=== PATIENT | female | born 1955 | race Caucasian/White ===

== ENCOUNTER 2020-11-18 23:31 | Observation (INO) | payer SELFPAY ==
--- NOTE | ~2020-11-18 | XR_ITS ---
EXAMINATION: XR chest 2V EXAM DATE: 11/19/2020 11:07 INDICATION: Elevated white blood cell count, pleural effusions. TECHNIQUE: Frontal and lateral projections of the chest obtained and reviewed. There is no prior danielle dy for comparison. FINDINGS: Moderate to large right-sided subpulmonic pleural effusion with adjacent right middle lobe and basilar multi segmental atelectasis. Small left pleural effusion. There is no pneumothorax suspe cted. Cardiomediastinal silhouette is normal. There is aortic arteriosclerosis. The bones are osteope rita. There are bony degenerative changes. IMPRESSION: 1. Moderate to large right pleural effusion with adjacent lobar atelectasis. Can't exclude superimpo sed pneumonia. 2. Small left pleural effusion. Reviewed, dictated and finalized at location B. E MANAGER IMPRESSION: 1. Moderate to large right pleural effusion with adjacent lobar atelectasis. C an't exclude superimposed pneumonia. 2. Small left pleural effusion.
--- NOTE | ~2020-11-18 | US_ITS ---
EXAMINATION: US venous doppler LE EXAM DATE: 11/19/2020 11:07 INDICATION: Bilateral leg edema. TECHNIQUE: Multiple grayscale, color flow and Doppler images of the lower extremity deep venous syste ms bilaterally were obtained and reviewed. There is no prior study for comparison. FINDINGS: Right side: The right common femoral, femoral and profunda veins demonstrate normal color flow, respi ratory variation, augmentation and compressibility. Compressibility, color flow confirmed within the right popliteal, posterior tibial, peroneal, and greater saphenous veins. Left side: The left common femoral, femoral and profunda veins demonstrate normal color flow, respira tory variation, augmentation and compressibility. Compressibility, color flow confirmed within the l eft popliteal, posterior tibial, peroneal, and greater saphenous veins. IMPRESSION: 1. No lower extremity deep venous thrombosis bilaterally. Reviewed, dictated and finalized at location B. O TECHNICIAN
--- NOTE | ~2020-11-18 | CT_ITS ---
EXAMINATION: CT abdomen pelvis w con DATE: 11/19/2020 01:20 INDICATION: Jaundice. Elevated liver function tests. TECHNIQUE: Computed tomography (CT) of the abdomen and pelvis was performed with 100 cc Omnipaque 350 intravenous contrast. Automated exposure control and iterative reconstruction technique were employe d. Exam dose: 294.35 mGy-cm total exam DLP. COMPARISON: None. FINDINGS: There is a large right pleural effusion with prominent compressive atelectasis of the middl e and particularly right lower lobes. There is minimal infiltrate or atelectasis in the left lower lo be and lingula. No pericardial effusion. No left pleural effusion. Diffuse hepatic steatosis. There is hepatomegaly interval nodularity of liver suggesting cirrhosis. Spleen measures up to 11.5 cm length, within upper limits of normal. There is moderate ascites. The gallbladder is present appears unremarkable. No bile duct or pancreatic duct dilatation is eviden t. No pancreatic mass lesion or calcification. Normal morphology of the adrenal glands. No renal mass lesion. No urinary tract calculus or hydroureteronephrosis. Normal caliber of the abdominal aorta; no abdominal aortic aneurysm. No intraperitoneal, retroperiton eal or pelvic mass lesion or adenopathy is noted. There are numerous diverticula of the sigmoid and descending colon; no CT evidence of diverticulitis. No bowel obstruction, bowel wall thickening, pneumatosis or intraperitoneal free air is evident. Left hip prosthesis. Prominent degenerative disease at L4-5 and L5-S1. Diffuse osteopenia. IMPRESSION: Cirrhosis, hepatic steatosis and moderate ascites Diverticulosis of the colon Left hip prosthesis Large right pleural effusion with associated compressive atelectasis of the middle and particularly r ight lower lobes Reviewed, dictated and finalized at [facility]. Reviewed, dictated and finalized at location A. R SCHOOL SPANISH TEACHER IMPRESSION: Cirrhosis, hepatic steatosis and moderate ascites Diverticulosis of the colon Left hip prosthesis Large right pleural effusion with associated compressive atelectasis of the mid dle and particularly right lower lobes
--- NOTE | ~2020-11-18 | US_ITS ---
EXAMINATION: US paracentesis abd w/image DATE: 11/19/2020 14:42 INDICATION: Ascites. TECHNIQUE: The procedure and its risks, benefits, and alternatives were discussed with the patient. P otential risks discussed included bleeding and infection. The skin was prepped and draped in sterile fashion. 1% lidocaine was used for local anesthesia. Under ultrasound guidance, a 5 Fr catheter with trochar was advanced into the ascites in the right lower quadrant. Fluid was aspirated. The catheter was removed, and a dressing was applied. There were no immediate complications. FINDINGS: Ultrasound images demonstrate ascites and the catheter within the fluid. IMPRESSION: 1. Successful ultrasound-guided paracentesis yielding 2000 mL of clear, yellow fluid. Reviewed, dictated and finalized at location A. OR SOFTWARE TESTER
[2020-11-18 23:35] VITALS: BP 136/62; PULSE 126; RESP 20; TEMP 36.6; O2SAT 94
[2020-11-18 23:56] VITALS: PULSE 118; RESP 24; O2SAT 100
--- NOTE | 2020-11-18 23:56 | ED.EXTPRO ---
HPI - Extremity Problem General Chief complaint: Extremity Problem,Nontraumatic Stated complaint: LEG NUMBNESS FOR PAST MONTH Time Seen by Provider: 11/18/20 23:46 Source: patient Mode of arrival: ambulatory Limitations: no limitations History of Present Illness HPI Narrative: A 65-year-old female comes into the emergency department tonight with complaints of pain and swelling in her lower extremities. She also is complaining of numbness. Patient states that her legs have become markedly more swollen than usual. She states that she does have issues with swelling in the past and this is just worse than usual. There is also some erythema noted on her legs. She denies any weeping or leaking of her legs. Related Data Home Medications Medication Instructions Recorded Confirmed No Home Medications 11/18/20 11/18/20 Allergies Allergy/AdvReac Type Severity Reaction Status Date / Time No Known Allergies Allergy Verified 11/18/20 23:59 Review of Systems Review of Systems: Narrative: CONSTITUTIONAL: Denies fever, chills, or sweats. EYES: Denies visual changes, redness, or discharge. ENT: Denies rhinorrhea, congestion, sore throat, or otalgia. CARDIOVASCULAR: Denies chest pain, palpitations, or edema. RESPIRATORY: Denies cough or dyspnea. GASTROINTESTINAL: Denies abdominal pain, nausea, vomiting, or diarrhea. GENITOURINARY: Denies dysuria or hematuria. SKIN: Denies rash or itching. MUSCULOSKELETAL: Denies back pain, joint pain, or myalgia. Endorses swelling and numbness in her bilateral lower extremities NEUROLOGIC: Denies headache, numbness, dizziness, or weakness. PSYCHIATRIC: Denies anxiety or depression. Exam Narrative: Exam Narrative: GENERAL: Well-appearing, well-nourished, and in no acute distress. HEAD: Normocephalic, atraumatic. EYES: PERRLA and EOMI. ENT: Nares clear, no rhinorrhea or epistaxis. Mucous membranes moist. Oropharynx without tonsillar hypertrophy exudate or other lesions. Bilateral TMs pearly umana nonbulging NECK: Supple. No adenopathy or masses. No carotid bruits or JVD CHEST: Clear to auscultation. No respiratory distress. No wheezes rales or rhonchi HEART: Regular rate and rhythm. No murmur heard. Normal peripheral pulses. ABDOMEN: Soft, nontender, nondistended, normal active bowel sounds. EXTREMITIES: Normal range of motion. 4+ pretibial pitting edema. Erythema noted bilaterally on the pretibial areas and feet, it is not warm to touch. SKIN: Warm, dry, no rash. NEURO: No focal deficits. Alert and oriented x3. PSYCH: Normal mood and affect. Course Reevaluation(s) Reevaluation #1: Reevaluated and provided care update to the patient. Informed her that her liver enzymes appeared slightly elevated. I also explained to the patient that she appeared slightly jaundiced. Her echoed that he said something to her last week that she was looking a little yellowed. Patient will be sent to the CT scanner to evaluate her letter. Patient did admit to drinking wine frequently. Lastly I addressed the patient's tachycardia. When she came in she said that she was very nervous and hospitals make her nervous. She was asking something to help with her nerves. Time: 00:59 Reevaluation #2: Had a further discussion with the patient regarding her CT results. Does show that she has got a large pleural effusion on the right as well as scattered ascites likely secondary to the alcoholic hepatitis. After this I initiated a conversation with the patient and she did admit that she drinks 3 to 4 glasses of wine (1 bottle) per day. After further discussion the patient was still short of breath and stated that if she was at rest she stated that she had mild trouble breathing but if she got up and moved she had had a much harder time with breathing. Because of this we will plan for admission with the intent of a thoracentesis and possible paracentesis. This way the patient will also be able to have a GI consult to be evaluat
[2020-11-19] VITALS (18 sets, daily range): BP systolic 92–121; BP diastolic 53–68; PULSE 105–118; RESP 16–31; TEMP 36.3–37.1; O2SAT 91–100; BMI 19.3
--- NOTE | 2020-11-19 | ECHO_ITS ---
Patient Info Name: Bailey Zavala Age: 65 years : 1955 Gender: Female Ht: 66 in Wt: 121 lbs BSA: 1.59 m2 HR: 108 bpm BP: 109 / 60 mmHg Heart Rhythm: Tachycardia Technical Quality: Good Exam Date: 11/19/2020 1:38 PM Exam Location: [facility] Pulmonary Exam Room: [facility] Patient Status: Inpatient Admit Date: 11/19/2020 Staff Ordering Physician: Yariel Rangel MD Bronze Chaser: Brittny Holden RDCS Attending Provider: Suman Loera MD Exam Type: CA echo doppler color flow Study Info Indications - CIRROHISIS LE WEAKNESS PLEURAL EFFUSION Complete two-dimensional, color flow and Doppler transthoracic echocardiogram is performed. Summary 1. Complete two-dimensional, color flow and Doppler transthoracic echocardiogram is performed. 2. Left ventricular systolic function is hyperdynamic, estimated at >70%. 3. There is no increased left ventricular wall thickness. 4. The left ventricular diastolic function is grade I diastolic dysfunction. 5. There is trace tricuspid valve regurgitation. 6. Mild pulmonary hypertension, estimated pulmonary arterial systolic pressure is 38 mmHg. 7. Normal inferior vena cava with <50% collapse upon inspiration consistent with elevated right atrial pressure, 10 mmHg. 8. There is small pericardial effusion. 9. Ascites present. 10. Left pleural effusion. Left Ventricle Left ventricular chamber dimension is normal. Left ventricular systolic function is hyperdynamic, estimated at >70%. There is no increased left ventricular wall thickness. The left ventricular diastolic function is grade I diastolic dysfunction. Right Ventricle Right ventricular chamber dimension is normal. Right ventricular systolic function is normal. Left Atria Left atrial chamber dimension is normal. Right Atria Right atrial chamber dimension is normal. Aortic Valve The aortic valve is trileaflet. There is no aortic valve stenosis. Pulmonic Valve The pulmonic valve is not well visualized. There is trace pulmonic regurgitation. Mitral Valve The mitral valve has normal leaflets. There is trace mitral valve regurgitation. Tricuspid Valve The tricuspid valve leaflets are normal. There is trace tricuspid valve regurgitation. Mild pulmonary hypertension, estimated pulmonary arterial systolic pressure is 38 mmHg. Pericardium/Pleural The pericardium appears normal. There is small pericardial effusion. Ascites present. Left pleural effusion. Inferior Vena Cava Normal inferior vena cava with <50% collapse upon inspiration consistent with elevated right atrial pressure, 10 mmHg. Aorta The aortic root size at the sinus of Valsalva is normal. Left Ventricular Outflow Tract Name Value Normal LVOT 2D LVOT Diameter 2.0 cm LVOT Doppler LVOT Peak Gradient 7 mmHg LVOT Mean Gradient 3 mmHg LVOT VTI 25 cm LVOT VTI/AV VTI Ratio 0.9 LVOT Stroke Volume 74 ml LVOT CO 15.3 l/min LV
[2020-11-19 00:22] LABS: Basophils Absolute Auto 0.1 K/mm3 (0.0-0.1); Basophils Percent Auto 0.6 % (0.2-1.2); Eosinophils Absolute Auto 0.1 K/mm3 (0-0.3); Eosinophils Percent Auto 0.3 % (0-4.4); Hematocrit 26.5 % (37.0-47.0); Hemoglobin 9.3 g/dL (12.0-15.0); Immature Granulocyte Absolute 0.11 K/mm3 (0.00-0.031); Immature Granulocyte Percent A 0.6 % (0-0.5); Lymphocytes Absolute Auto 2.56 K/mm3 (0.9-3.2); Lymphocytes Percent Auto 13.7 % (18.3-44.2); Mean Corpuscular HGB Conc 35.1 g/dl (32-36); Mean Corpuscular Hemoglobin 39.9 pg (26-34); Mean Corpuscular Volume 113.7 fl (80-100); Mean Platelet Volume 8.5 fl (7.4-10.4); Monocytes Absolute Auto 1.2 K/mm3 (0.1-0.6); Monocytes Percent Auto 6.5 % (2.6-8.5); Neutrophils Absolute Auto 14.7 K/mm3 (1.3-6.7); Neutrophils Percent Auto 78.3 % (45.5-73.1); Platelet Count Result 294 k/mm3 (150-375); Red Blood Count 2.33 M/mm3 (4.2-5.4); Red Cell Distribution Width 15.4 % (11.5-14.5); White Blood Count 18.7 K/mm3 (4.5-10.0)
[2020-11-19 00:35] LABS: Alanine Aminotransferase 22 U/L (4-35); Albumin Level 2.8 g/dL (3.5-5.1); Alkaline Phosphatase 164 U/L (38-126); Anion Gap 9 mmol/L (8-16); Aspartate Amino Transferase 95 U/L (14-36); Bilirubin Direct 0.4 mg/dL (0-0.3); Bilirubin,Total 4.7 mg/dL (0.2-1.3); Blood Urea Nitrogen 6 mg/dL (7-17); Carbon Dioxide 24 mmol/L (22-30); Chloride 95 mmol/L (98-107); Estimated CRCL calculation 84 ml/min; Estimated Glomerular Filt Rate > 60; Glucose 86 mg/dL (65-105); Potassium 3.9 mmol/L (3.4-5.0); Sodium 128 mmol/L (137-145)
[2020-11-19] MEDS: LORazepam INJ (*CRX) 2 MG/ML VIAL 0.5 MG IV PUSH (01:05)
--- NOTE | 2020-11-19 04:08 | PC.NURSE ---
This patient, Bailey Zavala, was admitted to 3 [facility] Surg Room 316-01. Patient/family oriented to hospital policies and general routines including ID bracelet, bed and alarms, visiting hours, pain management, procedures, bathroom and other care routines, personal items, smoking policy, room service/diet, and visiting hours. Information on how to activate the Rapid Response Team has been discussed. Patient/Family are encouraged to report perceived risks to care and to ask questions if they do not understand what they are told or what they should do.
--- NOTE | 2020-11-19 08:38 | PM.IMHP ---
H&P: HPI History of Present Illness Date/Time: 11/19/20 08:38 PATIENT PLACED IN OBSERVATION Chief Complaint: leg edema Narrative: Bailey Zavala is a 65 year old healthy female who presents to the emergency department with complaints of pain, numbness and swelling in her bilateral lower extremities. Over the past month and a half, patient has noted increasing pedal edema and increasing abdominal girth. She has had a 10 lb weight loss over the past few months. She has decreased appetite but no dysgeusia or anosmia. She has early satiety. No odynophagia or dysphagia. No nausea, vomiting, diarrhea or constipation. She has developed generalized weakness worse in the lower extremities. Her left leg is weaker than the right since 2017 after left hip fracture repair. Her symptoms worsened yesterday when she had trouble getting off the toilet. At that time she noted redness to her lower extremities. She also complains of crampy pain mostly in her calfs bilaterally as well as numbness from the knees down during this time period. She denies any chest pain or palpitations. She mostly sleeps in bed with 1 pillow flat but over the past month has had episodes where she wakes up ?anxious? and short of breath. She denies any nocturia. No dysuria or hematuria. No orthopnea. No weeping from the legs prior to admission but has noted this since marylin hose placed from ED. No cough, shortness of breath or dyspnea on exertion. No vision changes. No headaches. She has no significant past medical history. Specifically she denies any diabetes, CAD, hyperlipidemia, thyroid disease, seizures, stroke or liver problems. No family history of liver problems. She takes ibuprofen about 8 tablets a month on average but no acetaminophen. No other axyc-tcb-fvslcpe medications. No prescription medications. Alcohol use as detailed below. Because of the increasing weakness patient presented emergency room for evaluation. In the ED, patient was tachycardic with a pulse 126 otherwise was hemodynamically stable. White count is elevated 18,700. She was anemic with a macrocytic anemia. Sodium was low 128 with elevated AST and total bilirubin level. CT of the abdomen pelvis shows cirrhosis, moderate ascites and large right pleural effusion. She was given Ativan x1 and started on cephazolin for unclear reasons (cellulitis?). No cultures or UA obtained. Review of Systems Review of Systems: All systems reviewed & are unremarkable except as noted in HPI and below PMFSH Past Medical History Medical History (Updated 11/21/20 @ 14:59 by Yariel Rangel MD) Hx of fracture of left hip s/p repair with partial replacement Surgical History Surgical History (Updated 11/19/20 @ 09:33 by Yariel Rangel MD) History of total abdominal hysterectomy for fibroids Family History Family History (Updated 11/19/20 @ 04:20 by Debi Levi RN) Father Stented coronary artery Dementia Mother Kidney disease Social History Social History (Updated 11/19/20 @ 09:59 by Yariel Rangel MD) Social History: Patient lives at home her . No pets. Lifelong nonsmoker. No drug use. She is full code. She drinks 4 glasses of wine per day and has done so for at least 10 years (sometimes more at times). Her would be the individual would make medical decisions for her if she is not able. She denies any history of withdrawal symptoms or seizures but admits that she has not stopped drinking for extended period time. Smoking status: Never smoker Alcohol intake: current Drinks per week: 27 Substance use: never Gender identity (if verbalized by the patient): Female Spiritual care concerns: No Meds Home Medications and Allergies Home Medications Medication Instructions Recorded Confirmed Type No Home Medications 11/18/20 11/19/20 History Allergies Allergy/AdvReac Type Severity Reaction Status Date / Time No Known All
--- NOTE | 2020-11-19 09:52 | ECG_ITS ---
Measurements Intervals [place] Rate: 113 P: -24 PA: 88 QRS: 7 QRSD: 72 T: 28 QT: 313 QTc: 430 Interpretive Statements SINUS TACHYCARDIA WITH SHORT PA INTERVAL NONSPECIFIC ST & T-WAVE ABNORMALITY- DIFFUSE LEADS BASELINE ARTIFACT- I, II, AVR, AVL, AVF, V2, V4-V6 ABNORMAL ECG Electronically Signed On 11-19-2020 10:54:04 GREASE WORKER by Marty Manrique D.O.
[2020-11-19 10:43] LABS: Ammonia 30 umol/L (9-30)
[2020-11-19 10:44] LABS: CRP 2.2 mg/dL (<1.0)
--- NOTE | 2020-11-19 10:46 | PCOTNOTE ---
Attempted OT evaluation, pt is off the unit for testing, will attempt at later time.
--- NOTE | 2020-11-19 10:47 | PCPTNOTE ---
Attempted PT evaluation this AM, patient not in room was receiving Doppler study, will attempt at a later time.
[2020-11-19 10:57] LABS: Iron 62 ug/dL (37-170)
[2020-11-19 11:07] LABS: Percent Iron Saturation 51 % (20-50)
[2020-11-19] MEDS: FUROSEMIDE INJ 40 MG/4 ML VIAL 20 MG IV PUSH ×2 (11:23→17:06)
[2020-11-19] MEDS: THIAMINE HCL 200 MG/2 ML VIAL 100 MG IV PUSH (11:23)
[2020-11-19] MEDS: FOLIC ACID 1 MG TABLET PO (11:23)
[2020-11-19 11:54] LABS: Folic Acid 2.1 ng/mL (2.76->20)
--- NOTE | 2020-11-19 12:10 | WPDGICN ---
Assessment and Plan Assessment and plan (1) Alcoholic cirrhosis of liver with ascites: Code(s): K70.31 - Alcoholic cirrhosis of liver with ascites Status: Acute Assessment and Plan: Patient appears to have cirrhosis based on history is well CT scan findings concomitant this with this she has ascites and lower extremity edema. Her numbness may be a attributed to alcohol toxicity. Consider neurology evaluation. Plan is for patient to be on a low-salt diet. Daily weights will be obtained. Diuretics will be implemented slowly. Diagnostic paracentesis will be obtained for laboratory evaluation. And further recommendations subsequently. Patient's jaundice appears mainly to be in conjugated bilirubin period and likely from hepatocellular disease. Hepatitis serologies will be obtained to exclude viral etiology. These are pending. Because of apparent slow mentation ammonia level will be obtained. Prothrombin time also will be obtained to establish underlying function of liver. (2) Macrocytic anemia: Code(s): D53.9 - Nutritional anemia, unspecified Status: Acute (3) Alcoholism: Code(s): F10.20 - Alcohol dependence, uncomplicated Status: Acute Assessment and Plan: Patient appears to have daily alcohol intake attributing for her liver disease. Alcohol avoidance strongly encouraged (4) Pleural effusion on right: Code(s): J90 - Pleural effusion, not elsewhere classified Status: Acute Assessment and Plan: Pleural effusion noted on x-ray examination hopefully will improve with diuresis should this worsen pulmonary evaluation for thoracentesis may need to be considered. (5) Hx of fracture of left hip: Code(s): Z87.81 - Personal history of (healed) traumatic fracture Status: Acute GI Consult Note Consult date/time: 11/19/20 12:10 HPI: Bailey Zavala is a 65 year old female seen in evaluation at the request of the hospitalist service. Patient presented to the emergency room complaining of weakness in the lower extremities and numbness below the knees. She states this is worsened over the last 2-3 months. Upon presenting to the emergency room was found to have significant edema and abdominal swelling. Patient reports that she has had pedal edema for some time but increased swelling over last 2-3 months. Along with this she states her appetite has declined and she has lost perhaps 10 lb patient reports drinking wine perhaps 3-4 glasses of wine a night on a daily basis for many years. She reports past medical history of hip replacement approximately [address] scan performed in the emergency room suggest underlying cirrhosis of the liver and hepatic steatosis. Patient apparently was started on antibiotics for unclear reasons in the emergency room. She was on no other medications at home. Her family history is noncontributory. Patient denies any known exposure to hepatitis. No one else in the family as she is aware of has had hepatitis. Nor cirrhosis. Review of Systems Review of Systems: All systems reviewed & are unremarkable except as noted in HPI and below PMFSH Past Medical History Medical History Hx of fracture of left hip s/p repair with partial replacement Surgical History Surgical History (Updated 11/19/20 @ 09:33 by Yariel Rangel MD) History of total abdominal hysterectomy for fibroids Family History Family History (Updated 11/19/20 @ 04:20 by Debi Levi RN) Father Stented coronary artery Dementia Mother Kidney disease Social History Social History (Updated 11/19/20 @ 09:59 by Yariel Rangel MD) Social History: Patient lives at home her . No pets. Lifelong nonsmoker. No drug use. She is full code. She drinks 4 glasses of wine per day and has done so for at least 10 years (sometimes more at times). Her would be the individual would
[2020-11-19 12:54] LABS: Free T4 Free Thyroxine Reflex 1.46 ng/dL (0.78-2.19)
[2020-11-19 13:09] LABS: Ammonia 23 umol/L (9-30)
[2020-11-19 13:16] LABS: INR 1.5; Prothrombin Time 18.6 Seconds (11.1-14.7)
[2020-11-19 13:19] LABS: Partial Thromboplastin Time 42.2 SECONDS (22.3-36.8)
[2020-11-19 13:50] LABS: Add Urine Microscopic? YES; Appearance Urine Clear (Clear); Bacteria Urine Trace /hpf; Bilirubin Urine Negative (Negative); Blood Urine Negative (Negative); Color Urine Amber (Yellow); Glucose Urine UA Negative (Negative); Ketones Urine Negative (Negative); Leukocyte Esterase Ur Trace LEU/UL (Negative); Mucus Urine Rare /lpf; Nitrate Urine Negative (Negative); Protein Urine Negative (Negative); RBC Urine 0-2 /hpf (0-2); Specific Grav Ur 1.025 (1.001-1.035); Squamous Epithelial Cell Urine Rare /hpf (Few); WBC Urine 0-3 /hpf
[2020-11-19 14:18] LABS: Hepatitis B Surface Antigen Negative (Negative)
[2020-11-19 14:23] LABS: HAV RESULT Negative (Negative); Hepatitis B Core IgM Result Negative (Negative)
[2020-11-19 14:35] LABS: Hepatitis B Surface Anti Res Negative; Hepatitis C Virus Antibody Negative (Negative)
[2020-11-19 19:12] LABS: Appearance Peritoneal Fluid Hazy (Clear); Color Peritoneal Fluid Yellow (Colorless); Lymphocytes Peritoneal Fluid 15 %; Monocytes Peritoneal Fluid 57 %; Neutrophils Peritoneal Fluid 19 % (0-25); Nucleated Cells Peritoneal Flu 376 /uL (0-500); RBC Peritoneal Fluid 0 /uL (0-100000); Source Peritoneal Fluid Peritoneal Fluid
[2020-11-19 19:13] LABS: Eosinophils Peritoneal Fluid 0 %; Macrophages Peritoneal Fluid 1 %; Mesothelial Cells Peritoneal Fluid 8 %
[2020-11-20 06:00] VITALS: BP 100/52; PULSE 104; RESP 20; TEMP 36.7; O2SAT 90
[2020-11-20 06:00] LABS: Basophils Absolute Auto 0.1 K/mm3 (0.0-0.1); Basophils Percent Auto 0.5 % (0.2-1.2); Eosinophils Absolute Auto 0.1 K/mm3 (0-0.3); Eosinophils Percent Auto 0.4 % (0-4.4); Hemoglobin 8.1 g/dL (12.0-15.0); Immature Granulocyte Absolute 0.11 K/mm3 (0.00-0.031); Immature Granulocyte Percent A 0.7 % (0-0.5); Lymphocytes Absolute Auto 2.76 K/mm3 (0.9-3.2); Lymphocytes Percent Auto 18.6 % (18.3-44.2); Mean Corpuscular HGB Conc 35.2 g/dl (32-36); Mean Corpuscular Hemoglobin 39.5 pg (26-34); Mean Corpuscular Volume 112.2 fl (80-100); Mean Platelet Volume 8.5 fl (7.4-10.4); Monocytes Percent Auto 6.7 % (2.6-8.5); Neutrophils Absolute Auto 10.9 K/mm3 (1.3-6.7); Neutrophils Percent Auto 73.1 % (45.5-73.1); Platelet Count Result 224 k/mm3 (150-375); Red Blood Count 2.05 M/mm3 (4.2-5.4); Red Cell Distribution Width 15.2 % (11.5-14.5); White Blood Count 14.9 K/mm3 (4.5-10.0)
[2020-11-20 06:14] LABS: Alanine Aminotransferase 15 U/L (4-35); Albumin Level 2.1 g/dL (3.5-5.1); Alkaline Phosphatase 114 U/L (38-126); Anion Gap 2 mmol/L (8-16); Aspartate Amino Transferase 61 U/L (14-36); Bilirubin Indirect 2.1 mg/dL (0-1.1); Bilirubin,Total 4.2 mg/dL (0.2-1.3); Blood Urea Nitrogen 7 mg/dL (7-17); Calcium 7.4 mg/dL (8.4-10.2); Carbon Dioxide 30 mmol/L (22-30); Chloride 95 mmol/L (98-107); Estimated CRCL calculation 82 ml/min; Estimated Glomerular Filt Rate > 60; Glucose 89 mg/dL (65-105); Magnesium 1.6 mg/dL (1.6-2.3); Phosphorus 3.1 mg/dL (2.5-4.5); Potassium 3.2 mmol/L (3.4-5.0); Sodium 127 mmol/L (137-145)
[2020-11-20] MEDS: ENOXAPARIN 40 MG/0.4 ML SYRINGE SUB-Q (08:25)
[2020-11-20] MEDS: POTASSIUM CHLORIDE 20 MEQ TABLET 40 MEQ PO (08:25)
[2020-11-20] MEDS: THERAPEUTIC MULTIVITAMINS/MINERALS TAB (*BKC) 1 TABLET PO (08:26)
[2020-11-20] MEDS: FOLIC ACID 1 MG/0.2 ML INJ IV PUSH (08:26)
[2020-11-20] MEDS: FUROSEMIDE INJ 40 MG/4 ML VIAL 20 MG IV PUSH ×2 (08:26→16:57)
[2020-11-20] MEDS: THIAMINE HCL 200 MG/2 ML VIAL 100 MG IV PUSH (08:27)
[2020-11-20 10:51] VITALS: O2SAT 93
--- NOTE | 2020-11-20 12:08 | WPDGIPROGNO ---
Progress Note: A&P Assessment and Plan (1) Alcoholism: Code(s): F10.20 - Alcohol dependence, uncomplicated Status: Acute Assessment and Plan: Strict alcohol avoidance and rehabilitation encourage. (2) Macrocytic anemia: Code(s): D53.9 - Nutritional anemia, unspecified Status: Acute (3) Alcoholic cirrhosis of liver with ascites: Code(s): K70.31 - Alcoholic cirrhosis of liver with ascites Status: Acute Assessment and Plan: Continue supportive care. Low-salt diet with diuresis. Monitor daily weights. Monitor electrolytes and correct as necessary. (4) Pleural effusion on right: Code(s): J90 - Pleural effusion, not elsewhere classified Status: Acute Subjective Date/time seen: 11/20/20 12:08 Patient states her abdomen feels better after paracentesis. Mentation appears better today. Tolerating diet. Still feels very weak with lower extremity numbness described. Review of Systems Review of Systems: All systems reviewed & are unremarkable except as noted in HPI and below Exam Narrative: Exam Narrative: Physical exam reveals her to be alert. Significant scleral icterus identified. Lungs reveal decreased breath sounds on the right. Abdomen is distended but much softer. Liver span 2-3 cm below the right costal margin. Extremities with pedal edema below the knees. Objective Data Vital Signs Vital Signs: Vital Signs - 24 hr 11/19/20 14:00 11/19/20 22:00 11/20/20 06:00 Temperature 98.0 F 98.8 F 98.0 F Pulse Rate 116 H 110 H 104 H Respiratory Rate 16 20 20 Blood Pressure 99/58 L 104/53 L 100/52 L Pulse Oximetry 97 91 90 11/20/20 10:51 Temperature Pulse Rate Respiratory Rate Blood Pressure Pulse Oximetry 93 Intake/Output Intake/Output: Intake & Output 11/17/20 11/18/20 11/19/20 11/20/20 23:59 23:59 23:59 23:59 Intake Total 1210 590 Output Total 2650 Balance -1440 590 Meds/Results Medications: Active Medications Generic Name Dose Route Start Last Admin Trade Name Freq PRN Reason Stop Dose Admin Chlordiazepoxide HCl 10 mg 11/19/20 09:56 Chlordiazepoxide (*Crx) 10 Mg Capsule PO Q12H PRN Anxiety Enoxaparin Sodium 40 mg 11/20/20 09:00 11/20/20 08:25 Enoxaparin 40 Mg/0.4 Ml Syringe SUB-Q 40 mg DAILY NATY Administration Folic Acid 1 mg 11/20/20 09:00 11/20/20 08:26 Folic Acid 1 Mg/0.2 Ml Inj IV PUSH 1 mg QAM NATY Administration Furosemide 20 mg 11/19/20 09:55 11/20/20 08:26 Furosemide Inj 40 Mg/4 Ml Vial IV PUSH 20 mg BID NATY Administration Cefazolin Sodium 1 gm in 50 mls @ 100 mls/hr 11/19/20 10:00 11/20/20 08:57 Ancef 1 Gm/D5w 50 Ml Pm IVPB Infused Q8H NATY Infusion Multivitamins/Calcium 1 tablet 11/20/20 09:00 11/20/20 08:26 Therapeutic Multivitamins/Minerals Tab (*Bkc) PO 1 tablet QAM NATY Administration Thiamine HCl 100 mg 11/20/20 09:00 11/20/20 08:27 Thiamine Hcl 200 Mg/2 Ml Vial IV PUSH 100 mg QAM NATY Administration Radiology Results: ITS Impressions Abdomen/Pelvis CT 11/19/20 06:34 IMPRESSION: Cirrhosis, hepatic steatosis and moderate ascites Diverticulosis of the colon Left hip prosthesis Large right pleural effusion with associated compressive atelectasis of the middle and particularly right lower lobes Venous Doppler Study 11/19/20 11:08 IMPRESSION: 1. No lower extremity deep venous thrombosis bilaterally. Chest X-Ray 11/19/20 11:10 IMPRESSION: 1. Moderate to large right pleural effusion with adjacent lobar atelectasis. Can't exclude superimposed pneumonia. 2. Small left pleural effusion. Paracentesis Ultrasound 11/19/20 14:47 IMPRESSION: 1. Successful ultrasound-guided paracentesis yielding 2000 mL of clear, yellow fluid. Labs Labs: Laboratory Results - last 24 hr 11/19/20 11/19/20 11/19/20 10:18 10:18 10:18 WBC RBC Hgb Hct MCV
[2020-11-20] MEDS: POTASSIUM CHLORIDE 20 MEQ TABLET PO (12:24)
[2020-11-20 14:51] VITALS: BP 98/51; PULSE 71; RESP 16; TEMP 36.7; O2SAT 98
--- NOTE | 2020-11-20 15:58 | PM.IMPN ---
Progress Note: A&P Assessment and Plan (1) Alcoholic cirrhosis of liver with ascites: Code(s): K70.31 - Alcoholic cirrhosis of liver with ascites Status: Acute Assessment and Plan: Patient with cirrhosis that has become symptomatic now. Most likely this is related to alcohol. She states no abnormalities when she was hospitalized in 2017 that she is aware of. Duration of cirrhosis is unclear. Will proceed with further workup for her cirrhosis to exclude other etiologies. Echo showing EF 70% and Grade I DD and mild pulmonary HTN. Alcohol cessation is a must. Appreciate GI input. She is now s/p paracentesis with removal of 2L of straw colored fluid. Continue Lasix for diuresis purposes; spironolactone added. Home tomorrow of she is ambulating better. (2) Pleural effusion on right: Code(s): J90 - Pleural effusion, not elsewhere classified Status: Acute Assessment and Plan: Right pleural effusion noted. Most likely this is related to the ascites. This could be a separate issue although with seem unlikely. Will treat with diuretics. (3) Leukocytosis: Code(s): D72.829 - Elevated white blood cell count, unspecified Status: Acute Assessment and Plan: White count was elevated 18,700 on admission. Possibly related to mild cellulitis in the lower extremities although this seems more related to congestion that cellulitic. UA unrevealing. CXR showing right pleural effusion with compression atelectasis. Doubt PNA. Consider blood cultures if she has fever. WBC better today. Follow white count. (4) Macrocytic anemia: Code(s): D53.9 - Nutritional anemia, unspecified Status: Acute Assessment and Plan: Her hemoglobins is low at 9.3 with a macrocytosis most likely related to her liver disease. Anemia chronic disease related to her cirrhosis. Hemoglobin dropped to 8.1. Continue to monitor. (5) Hyponatremia: Code(s): E87.1 - Hypo-osmolality and hyponatremia Status: Acute Assessment and Plan: Sodium is low 128 most likely related to fluid overload. Repeat sodium about the same at 1:27 a.m.. Will follow closely on diuretics. (6) Alcoholism: Code(s): F10.20 - Alcohol dependence, uncomplicated Status: Acute Assessment and Plan: Patient has been educated about the benefits of abstain from alcohol. She has Folate deficiency. Continue to replace folate. Contineu thiamine. Librium available as needed for signs or symptoms of withdrawal. Continue CIWA protocol (7) DVT prophylaxis: Code(s): Z29.9 - Encounter for prophylactic measures, unspecified Status: Acute Assessment and Plan: Lovenox. Subjective Date/time seen: 11/20/20 15:58 Interval history: Date of service 11/20/2020 65-year-old female here for leg edema found to have alcoholic cirrhosis. Patient feels better today. Legs are less edematous. Slept okay last night. No shortness of breath or chest pain. No abdominal pain. Breathing easier she states. She is walking better. She is up walking to the bathroom with therapy. Exam Narrative: Exam Narrative: AF 98.0 98/51 71 16 98% ra Gen -no acute distress Chest -decreased breath sounds in the right mid and lower lung field. CV -regular rate and rhythm. S1-S2. Abd -abdomen less distended. Soft. Positive bowel sounds. Ext -persistent lower extremity edema but improved with wrinkling of the skin. Psych -normal mood and affect. Patient is pleasant and cooperative. Skin - Jaundiced. Objective Data Vital Signs Vital Signs: Vital Signs - 24 hr 11/19/20 22:00 11/20/20 06:00 11/20/20 10:51 Temperature 98.8 F 98.0 F Pulse Rate 110 H 104 H Respiratory Rate 20 20 Blood Pressure 104/53 L 100/52 L Pulse Oximetry 91 90 93 11/20/20 14:51 Temperature 98.0 F Pulse Rate 71 Respiratory Rate 16 Blood Pressure 98/51 L Pulse Oximetry 98 Intake/Output In
[2020-11-20] MEDS: SPIRONOLACTONE 25 MG TABLET PO (16:58)
[2020-11-20 20:00] VITALS: PULSE 67
[2020-11-20 22:00] VITALS: BP 99/48; PULSE 106; RESP 20; TEMP 36.8; O2SAT 97
[2020-11-21] VITALS: PULSE 89
[2020-11-21] MEDS: traMADol HCL (*CRX) 25 MG TABLET PO (00:17)
[2020-11-21 05:37] LABS: Hepatitis C Viral RNA PCR <15 IU/mL
[2020-11-21 06:00] VITALS: BP 90/46; PULSE 94; RESP 18; TEMP 36.4; O2SAT 92
[2020-11-21 06:17] LABS: Hematocrit 21.3 % (37.0-47.0); Hemoglobin 7.5 g/dL (12.0-15.0); Mean Corpuscular HGB Conc 35.2 g/dl (32-36); Mean Corpuscular Hemoglobin 40.8 pg (26-34); Mean Corpuscular Volume 115.8 fl (80-100); Mean Platelet Volume 8.6 fl (7.4-10.4); Platelet Count Result 210 k/mm3 (150-375); Red Blood Count 1.84 M/mm3 (4.2-5.4); Red Cell Distribution Width 15.5 % (11.5-14.5); White Blood Count 14.9 K/mm3 (4.5-10.0)
[2020-11-21 06:34] LABS: Alanine Aminotransferase 13 U/L (4-35); Alkaline Phosphatase 106 U/L (38-126); Anion Gap 3 mmol/L (8-16); Aspartate Amino Transferase 58 U/L (14-36); Bilirubin,Total 3.8 mg/dL (0.2-1.3); Blood Urea Nitrogen 8 mg/dL (7-17); Calcium 7.3 mg/dL (8.4-10.2); Carbon Dioxide 28 mmol/L (22-30); Chloride 96 mmol/L (98-107); Estimated CRCL calculation 104 ml/min; Estimated Glomerular Filt Rate > 60; Glucose 93 mg/dL (65-105); Magnesium 1.6 mg/dL (1.6-2.3); Potassium 3.5 mmol/L (3.4-5.0); Sodium 127 mmol/L (137-145)
[2020-11-21] MEDS: POTASSIUM CHLORIDE 20 MEQ TABLET PO (08:38)
[2020-11-21] MEDS: ENOXAPARIN 40 MG/0.4 ML SYRINGE SUB-Q (08:39)
[2020-11-21] MEDS: SPIRONOLACTONE 25 MG TABLET PO (08:39)
[2020-11-21] MEDS: FUROSEMIDE 20 MG TABLET PO (08:39)
[2020-11-21] MEDS: THERAPEUTIC MULTIVITAMINS/MINERALS TAB (*BKC) 1 TABLET PO (08:39)
[2020-11-21] MEDS: MAGNESIUM OXIDE 400 MG TABLET PO (08:39)
[2020-11-21] MEDS: THIAMINE HCL 100 MG TABLET PO (08:40)
[2020-11-21] MEDS: FOLIC ACID 1 MG/0.2 ML INJ IV PUSH (08:40)
--- NOTE | 2020-11-21 10:13 | WPDGIPROGNO ---
Progress Note: A&P Assessment and Plan (1) Alcoholic cirrhosis of liver with ascites: Code(s): K70.31 - Alcoholic cirrhosis of liver with ascites Status: Acute Assessment and Plan: Patient will maintain low salt diet. Now on Aldactone and Lasix. Will need to monitor electrolytes after discharge. Daily weight recording is advised as well. Low-salt diet should continue. (2) Pleural effusion on right: Code(s): J90 - Pleural effusion, not elsewhere classified Status: Acute Assessment and Plan: Pleural effusion likely related to ascites. Continuing diuresis should help this. Follow-up chest x-ray at some point advised. (3) Macrocytic anemia: Code(s): D53.9 - Nutritional anemia, unspecified Status: Acute Assessment and Plan: Macrocytic anemia peers to be related to alcohol-induced liver disease. No evidence for GI blood loss at this time. (4) Alcoholism: Code(s): F10.20 - Alcohol dependence, uncomplicated Status: Acute Assessment and Plan: Strict alcohol avoidance in rehab encourage. Subjective Date/time seen: 11/21/20 10:13 Patient alert more comfortable this morning. Now on oral diuretics. States she is notice more frequent urination. Denies abdominal pain. She denies any active bleeding. Review of Systems Review of Systems: All systems reviewed & are unremarkable except as noted in HPI and below Exam Narrative: Exam Narrative: Physical exam patient is alert. Vital signs stable HEENT exam reveals scleral icterus. Lungs are clear. Heart without murmur. Abdomen soft hepatomegaly confirmed. Objective Data Vital Signs Vital Signs: Vital Signs - 24 hr 11/20/20 10:51 11/20/20 14:51 11/20/20 20:00 Temperature 98.0 F Pulse Rate 71 Pulse Rate [Bilateral Pedal (Dorsalis Pedis)] 67 Respiratory Rate 16 Blood Pressure 98/51 L Pulse Oximetry 93 98 11/20/20 22:00 11/21/20 00:00 11/21/20 06:00 Temperature 98.3 F 97.6 F Pulse Rate 106 H 94 Pulse Rate [Bilateral Pedal (Dorsalis Pedis)] 89 Respiratory Rate 20 18 Blood Pressure 99/48 L 90/46 L Pulse Oximetry 97 92 Intake/Output Intake/Output: Intake & Output 01/31/21 02/01/21 02/02/21 02/03/21 23:59 23:59 23:59 23:59 Intake Total 1210 1330 540 Output Total 2650 650 Balance -1440 680 540 Meds/Results Medications: Active Medications Generic Name Dose Route Start Last Admin Trade Name Freq PRN Reason Stop Dose Admin Chlordiazepoxide HCl 10 mg 11/20/20 16:11 Chlordiazepoxide (*Crx) 10 Mg Capsule PO Q6H PRN Anxiety Enoxaparin Sodium 40 mg 11/20/20 09:00 11/21/20 08:39 Enoxaparin 40 Mg/0.4 Ml Syringe SUB-Q 40 mg DAILY NATY Administration Folic Acid 1 mg 11/20/20 09:00 11/21/20 08:40 Folic Acid 1 Mg/0.2 Ml Inj IV PUSH 1 mg QAM NATY Administration Furosemide 20 mg 11/21/20 09:00 11/21/20 08:39 Furosemide 20 Mg Tablet PO 20 mg DAILY NATY Administration Cefazolin Sodium 1 gm in 50 mls @ 100 mls/hr 11/19/20 10:00 11/21/20 02:06 Ancef 1 Gm/D5w 50 Ml Pm IVPB 100 mls/hr Q8H NATY Administration Magnesium Oxide 400 mg 11/21/20 09:00 11/21/20 08:39 Magnesium Oxide 400 Mg Tablet PO 400 mg QAM NATY Administration Multivitamins/Calcium 1 tablet 11/20/20 09:00 11/21/20 08:39 Therapeutic Multivitamins/Minerals Tab (*Bkc) PO 1 tablet QAM NATY Administration Spironolactone 25 mg 11/20/20 17:00 11/21/20 08:39 Spironolactone 25 Mg Tablet PO 25 mg BID NATY Administration Thiamine HCl 100 mg 11/21/20 09:00 11/21/20 08:40 Thiamine Hcl 100 Mg Tablet PO 100 mg QAM NATY Administration Tramadol HCl 25 mg 11/21/20 00:01 11/21/20 00:17 Tramadol Hcl (*Crx) 25 Mg Tablet PO 25 mg Q6H PRN Administration Pain Rated 4-6 Radiology Results: ITS Impressions Abdomen/Pelvis CT 11/19/20 06:34 IMPRESSION: Cirrhosis, hepatic steatosis and moderate ascites
[2020-11-21 14:00] VITALS: BP 95/50; PULSE 101; RESP 16; TEMP 36.6; O2SAT 99
--- NOTE | 2020-11-21 14:54 | PM.DS ---
DS: Admitting Diagnosis Admitting Diagnosis Admitting Diagnosis: Pedal edema DS: Discharge Diagnosis Discharge Diagnosis (1) Alcoholic cirrhosis of liver with ascites: Code(s): K70.31 - Alcoholic cirrhosis of liver with ascites Status: Acute Assessment and Plan: Patient with cirrhosis that has become symptomatic now. Most likely this is related to alcohol. She states no abnormalities when she was hospitalized in 2017 that she is aware of. Duration of cirrhosis is unclear. We proceeded with further workup for her cirrhosis to exclude other etiologies. Echo showing EF 70% and Grade I DD and mild pulmonary HTN. Other test showing no other clear etiology. Alcohol cessation is a must. GI following and appreciate their input. She underwent paracentesis with removal of 2L of straw colored fluid. Some of these studies pending. Treated with IV Lasix and spironolactone added. Good response with diuresis. PT and OT work with the patient. Patient has been up ambulating to the bathroom with minimal assistance. She is not requiring a walker. She feels comfortable with discharge. Home with diuretics. (2) Pleural effusion on right: Code(s): J90 - Pleural effusion, not elsewhere classified Status: Acute Assessment and Plan: Right pleural effusion noted. Most likely this is related to the ascites. This could be a separate issue although with seem unlikely. Was treated with diuretics. (3) Leukocytosis: Code(s): D72.829 - Elevated white blood cell count, unspecified Status: Acute Assessment and Plan: White count was elevated 18,700 on admission. [place] related to mild cellulitis in the lower extremities. UA unrevealing. CXR showing right pleural effusion with compression atelectasis. Doubt PNA. No fevers. WBC better. (4) Macrocytic anemia: Code(s): D53.9 - Nutritional anemia, unspecified Status: Acute Assessment and Plan: Her hemoglobins is low at 9.3 with a macrocytosis. Workup showing folate deficiency contributing to her anemia. Anemia most likely related to her liver disease and Folate deficiency. Hemoglobin dropped to 7.5 but no evidence of acute blood loss. BUN remained normal. Folate replacement given. (5) Hyponatremia: Code(s): E87.1 - Hypo-osmolality and hyponatremia Status: Acute Assessment and Plan: Sodium is low 128 most likely related to fluid overload. Repeat sodium about the same at 127. Follow as outpatient. (6) Alcoholism: Code(s): F10.20 - Alcohol dependence, uncomplicated Status: Acute Assessment and Plan: Patient was educated about the benefits of abstain from alcohol. She was monitored with [facility] protocol. She has Folate deficiency and this was replaced. Also treated with thiamine. Librium was available as needed for signs or symptoms of withdrawal but did not require this. (7) Cellulitis: Code(s): L03.90 - Cellulitis, unspecified Status: Acute Assessment and Plan: Erythema better with abx. Continue oral abx. DS: Summary Hospital Course Reason for hospitalization: 65yo female here for weakness and increasing pedal edema. Please see H&P for details. Hospital Course: Please see above for details hospital course. Status at Discharge Cognitive/behavioral status at discharge: Patient stable for discharge. Time Spent with Patient Time attestation: Total time spent providing and/or coordinating discharge services: 38 minutes Time spent: Greater than 30 minutes Exam Narrative: Exam Narrative: AF 97.8 95/50 101 16 99% ra Gen -no acute distress Chest -decreased breath sounds in the left lung base and the right mid and lower lung field. CV -regular rate and rhythm. S1-S2. Abd -abdomen less distended but protuberant. Soft. Positive bowel sounds. Ext -persistent lower extremity edema but improved with wrinkling of the skin. Psych -norm
[2020-11-22 07:05] LABS: Glucose Peritoneal Fluid 118 mg/dL; LDH Peritoneal Fluid 21 U/L (<63); Total Protein Peritoneal Fluid <3.0 g/dL
[2020-11-22 18:57] LABS: Hepatitis B Core Ab Total Nonreactive (Nonreactive)
[2020-11-23 13:36] LABS: Ceruloplasmin 20 mg/dL (18-53)
[2020-11-23 17:26] LABS: Albumin Peritoneal Fluid 0.4 g/dL
[2020-11-24 08:26] LABS: Mitochondrial (M2) Ab (IgG) <=20.0 U (<=20.0)
== END 2020-11-21 16:35 | disposition home or self-care (01) ==
LOC: ANHED 11-19 02:39 → ANH3MEDSUR 11-19 16:06
PROVIDERS: Internal Medicine Gastroenterology; Admitting Provider Family Medicine; Emergency Provider Emergency Medicine; PCP Family Medicine; Visit Provider Internal Medicine
DX: K70.31 Alcoholic cirrhosis of liver with ascites (principal); R60.0 Localized edema; J90 Pleural effusion, not elsewhere classified; D72.829 Elevated white blood cell count, unspecified; D53.9 Nutritional anemia, unspecified; E87.1 Hypo-osmolality and hyponatremia; F10.20 Alcohol dependence, uncomplicated; L03.90 Cellulitis, unspecified
CPT/HCPCS: 36415; 49083; 71046; 74177; 80048; 80053; 80076; 81001; 82042; 82104; 82140; 82390; 82607; 82728; 82746; 82945; 83520; 83540; 83550; 83615; 83735; 84100; 84157; 84439; 84443; 84480; 85025; 85027; 85610; 85730; 86038; 86140; 86704; 86705; 86706; 86709; 86803; 87070; 87075; 87205; 87340; 87522; 88104; 88108; 88305; 89051; 93005; 93306; 93970; 96365; 96372; 96375; 96376; 97110; 97116; 97161; 97165; 97530; 97535; 99285; A9270; G0378; G0379; J0690; J1650; J1940; J2060; J3411; Q9967